=== PATIENT | female | born 1935 | race Caucasian/White ===

== ENCOUNTER 2017-06-01 13:48 | Emergency (ER) | payer MEDICARE, BC ==
--- NOTE | 2017-06-01 13:58 | Emergency Department Record ---
History of Present Illness - General Chief Complaint: Palpitations Stated Complaint: HEART RACING SOB ,L LEG PA IN CALF Source: Patient Mode of Arrival: Ambulatory Limitations: No limitations - History of Present Illness Initial Comments: 81 yo female presents from [facility]. The patient reports a few episodes the last 4 days that have concerned her. She is having episodes that make her feel flushed and short of breath with rapid heart rate. They mostly occur during stress. She has been on the phone with insurance [employer] and this stressed her out. No chest pain at any time. 4 days ago she was walking in her living room looking out the window and turn. She felt a pulling feeling in her left calf. The left calf has hurt since mildly with walking or weight bearing. No tenderness to palpation or swelling. No history of DVT/PE/CAD. No history of arrhythmia. PCP Dr Torres. Many years ago she was at [employer] and had testing that was negative for any CAD. 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 MD Complaint: "Heart racing", Palpitations -: Days(s) (4) Context: Other Associated Symptoms: Anxiety, Muscle cramps, Shortness of breath Treatments Prior to Arrival: Calcium channel shimon - Related Data Allergies Allergy/AdvReac Type Severity Reaction Status Date / Time codeine AdvReac Intermediate NAUSEA Verified 06/01/17 13:54 pain medication AdvReac Intermediate NAUSEA Uncoded 03/10/15 09:10 Review of Systems Constitutional: Denies: Chills, Fever, Malaise, Weakness Eyes: Denies: Eye discharge, Eye pain, Photophobia, Vision change ENT: Denies: Congestion, Throat pain Respiratory: Reports: Dyspnea. Denies: Cough, Hemoptysis, Stridor, Wheezes Cardiovascular: Reports: Arrhythmia, Dyspnea on exertion, Palpitations. Denies : Chest pain, Edema, Syncope Endocrine: Denies: Fatigue, Heat or cold intolerance, Polydipsia, Polyuria Gastrointestinal: Denies: Abdominal pain, Diarrhea, Nausea, Vomiting Genitourinary: Denies: Dysuria, Urgency Musculoskeletal: Reports: As per HPI, Myalgia. Denies: Arthralgia, Back pain, Joint swelling Skin: Denies: Bruising, Change in color, Rash Neurological: Denies: Headache, Numbness, Weakness Psychiatric: Denies: Anxiety Hematological/Lymphatic: Denies: Blood Clots, Easy bleeding, Easy bruising, Swollen glands Past Medical History - SOCIAL HISTORY Smoking Status: Never smoker Drug Use: None - RESPIRATORY Hx Respiratory Disorders: Yes Hx Pneumonia: Yes - CARDIOVASCULAR Hx Cardio Disorders: Yes Hx Hypertension: Yes Hx Irregular Heartbeat: Yes - NEURO Hx Neuro Disorders: No - GI Hx GI Disorders: No - Hx Genitourinary Disorders: No - ENDOCRINE Hx Endocrine Disorders: Yes Hx Diabetes: Yes (diet control) - MUSCULOSKELETAL Hx Musculoskeletal Disorders: No - PSYCH Hx Psych Problems: No - HEMATOLOGY/ONCOLOGY Hx Hematology/Oncology Disorders: No Family Medical History Hx Heart Disease: Mother Physical Exam - General General Appearance: Alert, Oriented x3, Cooperative, No acute distress Limitations: No limitations - Head Head exam: Atraumatic, Normocephalic, Normal inspection - Eye Eye exam: Normal appearance. negative: Conjunctival injection, Periorbital swelling, Scleral icterus - ENT ENT exam: Normal exam, Mucous membranes moist Ear exam: Normal external inspection Nasal Exam: Normal inspection Mouth exam: Normal external inspection Teeth exam: Normal inspection Throat exam: Normal inspection - Neck Neck exam: Normal inspection, Full ROM. negative: Tenderness - Respiratory Respiratory exam: Normal lung sounds bilaterally. negative: Accessory muscle use, Respiratory distress, Rhonchi, Stridor, Wheezes - Cardiovascular Cardiovascular Exam: Regular rate, Normal rhythm, Normal heart sounds Peripheral Pulses: 2+: Radial (R), Radial (L) - GI/Abdominal GI/Abdominal exam: Soft. negative: Tenderness - Rectal Rectal exam: Deferred - exam: Deferred - Extremities Extremities exam: Normal inspection, Full ROM, Normal capillary refill, Other ( No swelling). negative: Calf tenderness, Joint swelling, Pedal edema, Tenderness Image of Full Body: 1 - normal calf inspection, no swelling, no edema, no tenderness to palpation. No clinical signs of DVT. Normal leg examination. Achilles is non tender, Normal Margarita's response without pain. - Back Back exam: Reports: Full ROM. Denies: CVA tenderness (R), CVA tenderness (L) - Neurological Neurological exam: Alert, Normal gait, Oriented X3 - Psychiatric Psychiatric exam: Normal affect, Normal mood. negative: Agitated, Anxious - Skin Skin exam: Dry, Intact, Normal color, Warm Course - Reevaluation(s) Reevaluation #1: 06/01/17 14:18 EKG 13:55 NSR, rated 70, intervals normal, axis is normal, ST normal. 06/01/17 14:38 The CBC and D-Dimer were reviewed and were negative. 06/01/17 14:50 The CMP was reviewed. BUN is 25 which is baseline The Troponin is normal after atypical symptoms the last few days The BNP is normal. 06/01/17 15:31 06/01/17 15:43 The patient remains asymptomatic throughout the ED stay I will call for a referral for outpatient cardiology follow up for atypical symptoms. 06/01/17 15:56 Follow up established with the specialty clinic tomorrow with Dr Jaimes Medical Decision Making - Lab Data Result diagrams: 06/01/17 14:05 06/01/17 14:05 Disposition Disposition: Discharge Clinical Impression: Palpitation Disposition: Home, Self-Care Condition: (1) Good Instructions: Heart Palpitations (ED) Additional Instructions: Return immediately if you have any pain, chest pain, short of breath or any new concerns You have been referred to the cardiology specialty clinic for close follow up Referrals: [facility] [Provider Group] Bryan Jaimes [MEDICAL DOCTOR] - Forms: Patient Portal Access Time of Disposition: 15:45 Quality - Quality Measures Quality Measures: N/A - Blood Pressure Screening Does Patient Have Any of the Following: No Blood Pressure Classification: Pre-Hypertensive BP Reading Systolic Measurement: 139 Diastolic Measurement: 82 Screening for High Blood Pressure: < Pre-Hypertensive BP, F/U Documented > [ G8950] Pre-Hypertensive Follow-up Interventions: Referral to alternative/primary care provider.
[2017-06-01 14:17] LABS: BASO % 0.5 % (0-6); EOS % 1.3 % (0-6); GRAN % 56.1 % (47-80); HEMOGLOBIN 14.8 gm/dl (11.6-16.0); LYMPH % 33.3 % (16-45); MEAN CELL VOLUME 79.1 fl (81-97); MEAN CORPUSCULAR HEMOGLOBIN 26.6 pg (27-33); MEAN CORPUSCULAR HGB CONC 33.6 g/dl (32-36); MONO % 8.8 % (0-9); PLATELET COUNT 240 K/uL (130-400); RED BLOOD COUNT 5.56 M/uL (3.80-5.40); RED CELL DISTRIBUTION WIDTH 13.3 % (11.5-14.5); WHITE BLOOD COUNT W/O DIFF 10.9 K/uL (4.2-12.2)
[2017-06-01 14:45] LABS: ALB/GLOB RATIO 1.4 (1.1-1.8); ALBUMIN 4.5 g/dL (4.0-5.0); ALKALINE PHOSPHATASE 93 U/L (35-104); ALT/SGPT 20 U/L (<33); AST/SGOT 19 U/L (10.0-35.0); BLOOD UREA NITROGEN 25 mg/dL (8-23); CREATININE 0.7 mg/dL (0.5-0.9); EST GLOMERULAR FILTRATION RATE > 60 mL/min; GLUCOSE,RANDOM 133 mg/dL (74-109); TOTAL PROTEIN 7.8 g/dL (6.6-8.7)
--- NOTE | 2017-06-02 14:17 | RADIOLOGY REPORT ---
EXAM: CHEST, TWO VIEWS HISTORY: DIFFICULTY IN BREATHING. TECHNIQUE: Frontal and lateral views of the chest were performed. FINDINGS: The heart size is normal. No pulmonary vascular congestion. No infiltrate or pleural effusion. The osseous structures are normal. IMPRESSION: NO ACUTE DISEASE PROCESS. JOB NUMBER: [id number] MTDD
== END 2017-06-01 16:21 | disposition home or self-care (01) ==
LOC: ER 13:48
DX: R00.2 Palpitations (principal); M79.662 Pain in left lower leg; R06.02 Shortness of breath; I10 Essential (primary) hypertension; E11.9 Type 2 diabetes mellitus without complications
CPT/HCPCS: 71020; 80053; 83880; 84484; 85025; 85379; 93005; 93010; 99284

== ENCOUNTER 2017-06-10 03:44 | Emergency (ER) | payer MEDICARE, BC ==
[2017-06-10] MEDS ORDERED: 0.9 % SODIUM CHLORIDE 1000ML 1,000 ML IV SCH (04:00)
--- NOTE | 2017-06-10 04:00 | Emergency Department Record ---
History of Present Illness - General Chief Complaint: Shortness of breath Stated Complaint: DIFFICULTY BREATHING Time Seen by Provider: 06/10/17 03:58 Source: Patient Mode of Arrival: Ambulatory Limitations: No limitations - History of Present Illness Initial Comments: 81 yo female presents to ED with a CC of difficulty breathing and cough symptoms since yesterday. Patient denies fevers or chills, denies chest pain symptoms. Patient denies previous history of asthma or COPD symptoms. MD Complaint: Shortness of breath Onset/Timin -: Days(s) Severity: Mild Severity scale (1-10): 1 Quality: Sharp Consistency: Intermittent Improves With: Nothing Worsens With: Nothing Associated Symptoms: Cough Treatments Prior to Arrival: None - Related Data Home Oxygen Therapy: No Home Oxygen Amount: none Allergies Allergy/AdvReac Type Severity Reaction Status Date / Time codeine AdvReac Intermediate NAUSEA Verified 06/10/17 03:50 pain medication AdvReac Intermediate NAUSEA Uncoded 06/10/17 03:50 Travel Screening - Travel/Exposure Within Last 30 Days Have you traveled within the last 30 days?: No - Travel/Exposure Within Last Year Have you traveled outside the [place] in the last year?: No - Additonal Travel Details Have you been exposed to anyone with a communicable illness?: No - Travel Symptoms Symptom Screening: None Review of Systems Constitutional: Reports: Malaise, Weakness. Denies: Chills, Fever, Night sweats Eyes: Denies: Eye discharge, Eye pain ENT: Reports: Congestion. Denies: Ear pain, Epistaxis Respiratory: Reports: Cough, Dyspnea Cardiovascular: Reports: Dyspnea on exertion. Denies: Chest pain Endocrine: Reports: Fatigue. Denies: Heat or cold intolerance Gastrointestinal: Denies: Abdominal pain Genitourinary: Denies: Incontinence, Retention Musculoskeletal: Denies: Arthralgia, Back pain, Gout, Joint swelling Skin: Denies: Bruising, Change in color Neurological: Denies: Abnormal gait, Confusion, Headache, Seizure Psychiatric: Denies: Anxiety Hematological/Lymphatic: Denies: Anemia, Blood Clots Past Medical History - SOCIAL HISTORY Smoking Status: Never smoker Alcohol Use: None Drug Use: None - RESPIRATORY Hx Respiratory Disorders: Yes Hx Pneumonia: Yes - CARDIOVASCULAR Hx Cardio Disorders: Yes Hx Hypertension: Yes Hx Irregular Heartbeat: Yes - NEURO Hx Neuro Disorders: No - GI Hx GI Disorders: No - Hx Genitourinary Disorders: No - ENDOCRINE Hx Endocrine Disorders: Yes Hx Diabetes: Yes (diet control) - MUSCULOSKELETAL Hx Musculoskeletal Disorders: No - PSYCH Hx Psych Problems: No - HEMATOLOGY/ONCOLOGY Hx Hematology/Oncology Disorders: No Family Medical History Any Significant Family History?: No Hx Heart Disease: Mother Physical Exam - General General Appearance: Alert, Oriented x3, Cooperative, Moderate distress Limitations: No limitations - Head Head exam: Atraumatic, Normocephalic, Normal inspection Head exam detail: negative: Abrasion, Contusion, Simmons's sign, General tenderness, Hematoma, Laceration - Eye Eye exam: Normal appearance. negative: Conjunctival injection, Periorbital swelling, Periorbital tenderness, Scleral icterus - ENT Ear exam: negative: Auricular hematoma, Auricular trauma Nasal Exam: negative: Active bleeding, Discharge, Dried blood, Foreign body Mouth exam: negative: Drooling, Laceration, Muffled voice, Tongue elevation - Neck Neck exam: Normal inspection. negative: Meningismus, Tenderness - Respiratory Respiratory exam: Decreased breath sounds, Respiratory distress, Other ( Tachypnic on examination, mild rhonchi left). negative: Rales, Rhonchi, Stridor - Cardiovascular Cardiovascular Exam: Normal rhythm, Normal heart sounds, Tachycardia - GI/Abdominal GI/Abdominal exam: Soft. negative: Rebound, Rigid, Tenderness - Rectal Rectal exam: Deferred - exam: Deferred - Extremities Extremities exam: Normal inspection. negative: Calf tenderness, Pedal edema, Tenderness - Back Back exam: Denies: CVA tenderness (R), CVA tenderness (L) - Neurological Neurological exam: Alert, Normal gait, Oriented X3 - Psychiatric Psychiatric exam: Normal affect, Normal mood - Skin Skin exam: Normal color. negative: Abrasion Type of lesion: negative: abrasion Course Vital Signs 06/10/17 03:49 Temperature 98.4 F Pulse Rate 116 H Respiratory 26 H Rate Blood Pressure 139/76 Pulse Ox 90 L - Reevaluation(s) Reevaluation #1: 06/10/17 04:04 EKG: Sinus tachycardia 115 Normal axis, normal intervals ST depression V4-V6, ? rate related. Reevaluation #2: 06/10/17 04:43 CXR: Findings are c/w CAP Rocephin and Zithromax initiated in ED with a plan for admission following laboratory results. Reevaluation #3: 06/10/17 04:53 Troponin resulted 0.21 (elevated). ASA ordered, will initiate transfer to [facility] for further evaluation. Reevaluation #4: 06/10/17 05:25 Patient's respiratory distress increased, switched to Bipap to improve her work of breathing. Will continue to monitor closely. Awaiting return call from [facility]. Reevaluation #5: 06/10/17 05:38 Case was discussed with Dr. Glynn, will accept transfer. Medical Decision Making - Lab Data Result diagrams: 06/10/17 04:00 06/10/17 04:05 Critical Care Time Critical Care Time: Yes Total Critical Care Time: 45 Critical Care Time: Treatment of respiratory distress resulting from CAP, administration of Bipap/ antibiotics. ASA ordered for indeterminate troponin. Arrangement of transfer to [facility] for further evaluation. Disposition Disposition: Transfer Clinical Impression: Hypoxia, Elevated troponin level CAP (community acquired pneumonia) Qualifiers: Laterality: unspecified laterality Qualified Code(s): J18.9 - Pneumonia, unspecified organism Sepsis Qualifiers: Sepsis type: sepsis due to unspecified organism Qualified Code(s): A41.9 - Sepsis, unspecified organism Disposition: Still a Patient at [facility] Transfer To: [facility] Reason For Transfer: Sepsis, CAP, elevated troponin Accepting Physician: Gretta Time Discussed w/Accepting Physician: 05:38 Condition: (2) Stable Forms: Patient Portal Access Time of Disposition: 05:39 Quality - Quality Measures Quality Measures: N/A - Blood Pressure Screening Does Patient Have Any of the Following: Active Dx of HTN Blood Pressure Classification: Pre-Hypertensive BP Reading Systolic Measurement: 139 Diastolic Measurement: 76 Screening for High Blood Pressure: Patient Exclusion, Hx of HTN [G9744]
[2017-06-10 04:28] LABS: BASO % 0.2 % (0-6); EOS % 0.3 % (0-6); GRAN % 75.6 % (47-80); HEMATOCRIT 40.1 % (35.0-47.0); HEMOGLOBIN 13.6 gm/dl (11.6-16.0); LYMPH % 14.9 % (16-45); MEAN CELL VOLUME 78.9 fl (81-97); MEAN CORPUSCULAR HEMOGLOBIN 26.8 pg (27-33); MEAN CORPUSCULAR HGB CONC 33.9 g/dl (32-36); MEAN PLATELET VOLUME 11.7 fl (7.4-10.4); PLATELET COUNT 221 K/uL (130-400); RED BLOOD COUNT 5.08 M/uL (3.80-5.40); RED CELL DISTRIBUTION WIDTH 13.5 % (11.5-14.5); WHITE BLOOD COUNT W/O DIFF 16.3 K/uL (4.2-12.2)
[2017-06-10] MEDS ORDERED: CEFTRIAXONE SODIUM 1 GM in 0.9 % SODIUM CHLORIDE 100ML 100 ML IVPB ONE (04:37)
[2017-06-10] MEDS ORDERED: AZITHROMYCIN 500 MG in 0.9 % SODIUM CHLORIDE 250ML 250 ML IVPB ONE (04:37)
[2017-06-10 04:46] LABS: ALB/GLOB RATIO 1.3 (1.1-1.8); ALKALINE PHOSPHATASE 91 U/L (35-104); ALT/SGPT 17 U/L (<33); AST/SGOT 19 U/L (10.0-35.0); BLOOD UREA NITROGEN 26 mg/dL (8-23); CREATININE 0.8 mg/dL (0.5-0.9); EST GLOMERULAR FILTRATION RATE > 60 mL/min; GLUCOSE,RANDOM 179 mg/dL (74-109); TOTAL PROTEIN 7.1 g/dL (6.6-8.7)
[2017-06-10] MEDS ORDERED: ASPIRIN 81 MG CHEWABLE TABLET PO ONE (04:54)
--- NOTE | 2017-06-12 07:46 | RADIOLOGY REPORT ---
DATE: 06/10/2017 at 0414. EXAM: CHEST, TWO VIEWS. HISTORY: Shortness of breath. Cough. TECHNIQUE: Upright PA and lateral views of the chest. COMPARISON: Two-view chest radiographic examination dated 06/01/2017. FINDINGS: The lungs remain hyperinflated. The heart projects mildly enlarged, and there is new mild pulmonary venous hypertension. Mixed primarily reticular opacities are noted in the mid to lower lungs consistent with edema or interstitial pneumonitis. There is questionable new minimal costophrenic angle blunting with tiny effusions suspected. No pneumothorax. The osseous structures are intact. IMPRESSION: CARDIOMEGALY WITH NEW MILD PULMONARY VENOUS HYPERTENSION AND POSSIBLE TINY PLEURAL EFFUSION SUSPICIOUS FOR FLUID OVERLOAD. NEW MIXED PRIMARILY RETICULAR OPACITIES WITHIN THE MID TO LOWER LUNGS SUSPICIOUS FOR INTERSTITIAL EDEMA, THOUGH INTERSTITIAL PNEUMONITIS CANNOT BE EXCLUDED. JOB NUMBER: [id number] MTDD
== END 2017-06-10 08:08 | disposition still patient (30) ==
LOC: ER 03:44
DX: J18.9 Pneumonia, unspecified organism (principal); A41.9 Sepsis, unspecified organism; R09.02 Hypoxemia; R79.89 Other specified abnormal findings of blood chemistry; I10 Essential (primary) hypertension
CPT/HCPCS: 71020; 80053; 83605; 84484; 85025; 93005; 93010; 94660; 96374; 96375; 99285; J0456; J7030; J7050

== ENCOUNTER 2018-03-14 20:25 | Emergency (ER) | payer MEDICARE, BC ==
--- NOTE | 2018-03-14 20:54 | Emergency Department Record ---
History of Present Illness - General Chief Complaint: Headache Migraine Stated Complaint: HEADACHE PAIN,COUGH Source: Patient Mode of Arrival: Ambulatory Limitations: No limitations - History of Present Illness Initial Comments: 82 yo female presents to ED for evaluation of right sided headache symptoms that began 2 days ago. Patient denies injury, denies fevers, chills, or stiff neck symptoms. Patient also denies change in vision or focal weakness symptoms. Patient does report a history of headache symptoms previously as well , unable to determine if her previous headaches were similar in nature. Patient is concerned about a possible sinus infection. Patient also reports mild non-productive cough symptoms x 3 weeks. Patient has been taking Tylenol at home that improves her symptoms. MD Complaint: Headache Onset/Timin -: Days(s) Onset Description: Gradual Location: Frontal, Retro-orbital, Right Severity scale (1-10): 2 Quality: Aching Consistency: Constant Improves With: Medication Worsens With: None Treatments Prior to Arrival: Acetaminophen - Related Data Home Medications Medication Instructions Recorded Confirmed Last Taken Aspirin 325 mg PO DAILY 03/14/18 03/14/18 Unknown Atorvastatin Calcium [Lipitor] 10 mg PO DAILY 03/14/18 03/14/18 Unknown Cholecalciferol (Vitamin D3) 2,000 unit PO DAILY 03/14/18 03/14/18 Unknown [Vitamin D3] Hydralazine HCl 25 mg PO TID 03/14/18 03/14/18 Unknown Levothyroxine Sodium [Synthroid] 75 mcg PO DAILY 03/14/18 03/14/18 Unknown Metoprolol Tartrate [Lopressor] 25 mg PO QPM 03/14/18 03/14/18 Unknown Metoprolol Tartrate [Lopressor] 50 mg PO QAM 03/14/18 03/14/18 Unknown Allergies Allergy/AdvReac Type Severity Reaction Status Date / Time codeine AdvReac Intermediate NAUSEA Verified 06/10/17 03:50 lorazepam [From Ativan] AdvReac ALTERED Verified 03/14/18 20:34 MENTAL STATUS Travel Screening - Travel/Exposure Within Last 30 Days Have you traveled within the last 30 days?: No - Travel Symptoms Symptom Screening: None Review of Systems Constitutional: Denies: Chills, Fever, Malaise, Night sweats Eyes: Denies: Eye discharge, Eye pain ENT: Denies: Congestion, Dental pain, Ear pain, Epistaxis Respiratory: Reports: Cough. Denies: Dyspnea Cardiovascular: Denies: Chest pain, Dyspnea on exertion Endocrine: Denies: Fatigue, Heat or cold intolerance Gastrointestinal: Denies: Abdominal pain, Nausea, Vomiting Genitourinary: Denies: Incontinence, Retention Musculoskeletal: Denies: Arthralgia, Back pain Skin: Denies: Bruising, Change in color Neurological: Reports: Headache. Denies: Abnormal gait, Confusion, Seizure Psychiatric: Denies: Anxiety Hematological/Lymphatic: Denies: Anemia, Blood Clots Past Medical History - SOCIAL HISTORY Smoking Status: Never smoker - RESPIRATORY Hx Respiratory Disorders: Yes Hx Pneumonia: Yes - CARDIOVASCULAR Hx Cardio Disorders: Yes Hx Hypertension: Yes Hx Irregular Heartbeat: Yes Comment:: high cholesterol - NEURO Hx Neuro Disorders: No - GI Hx GI Disorders: No - Hx Genitourinary Disorders: No - ENDOCRINE Hx Endocrine Disorders: Yes Hx Diabetes: Yes (diet control) Hx Thyroid Disease: Yes (Low) - MUSCULOSKELETAL Hx Musculoskeletal Disorders: No - PSYCH Hx Psych Problems: No - HEMATOLOGY/ONCOLOGY Hx Hematology/Oncology Disorders: No Family Medical History Any Significant Family History?: Yes Hx Heart Disease: Mother Physical Exam - General General Appearance: Alert, Oriented x3, Cooperative, No acute distress Limitations: No limitations - Head Head exam: Atraumatic, Normocephalic, Normal inspection Head exam detail: negative: Abrasion, Contusion, Simmons's sign, General tenderness, Hematoma, Laceration - Eye Eye exam: Normal appearance, Other (No mayda-orbital STS present, EOMI). negative: Conjunctival injection, Periorbital swelling, Periorbital tenderness, Scleral icterus - ENT Ear exam: negative: Auricular hematoma, Auricular trauma Nasal Exam: negative: Active bleeding, Discharge, Dried blood, Foreign body Mouth exam: negative: Drooling, Laceration, Muffled voice, Tongue elevation - Neck Neck exam: Normal inspection. negative: Meningismus, Tenderness - Respiratory Respiratory exam: Normal lung sounds bilaterally. negative: Rales, Respiratory distress, Rhonchi, Stridor - Cardiovascular Cardiovascular Exam: Regular rate, Normal rhythm, Normal heart sounds - GI/Abdominal GI/Abdominal exam: Soft. negative: Rebound, Rigid, Tenderness - Rectal Rectal exam: Deferred - exam: Deferred - Extremities Extremities exam: Normal inspection. negative: Calf tenderness, Pedal edema, Tenderness - Back Back exam: Denies: CVA tenderness (R), CVA tenderness (L) - Neurological Neurological exam: Alert, Normal gait, Oriented X3 - Psychiatric Psychiatric exam: Normal affect, Normal mood - Skin Skin exam: Normal color. negative: Abrasion Type of lesion: negative: abrasion Course Vital Signs 03/14/18 20:35 Temperature 98.2 F Pulse Rate [ 85 Pulse Ox Probe] Respiratory 24 Rate Blood Pressure 184/87 [Left Arm] Pulse Ox 95 - Reevaluation(s) Reevaluation #1: 03/14/18 21:44 Laboratory studies were reviewed: BUN 26 AG 17 Labs are otherwise grossly unremarkable for an acute process. CT Brain: Atrophy and small vessel ischemic changes No acute process Patient and her family member were updated on all results thus far, patient reports that her headache symptoms continue to be mild (2-3/10), and she denies analgesia at this time. No evidence for CVA/Temporal arteritis on examination. Patient was counseled to return to ED for any rash that could develop in the distribution of the pains symptoms or any fever symptoms to return to ED immediately. Patient is otherwise well appearing and stable for discharge at this time. Medical Decision Making - Lab Data Result diagrams: 03/14/18 21:00 03/14/18 21:00 Disposition Disposition: Discharge Clinical Impression: Headache Qualifiers: Headache type: unspecified Headache chronicity pattern: acute headache Intractability: not intractable Qualified Code(s): R51 - Headache Disposition: Home, Self-Care Condition: (2) Stable Instructions: Acute Headache (ED) Additional Instructions: Return to ED if your symptoms worsen or if you have any concerns. Tylenol as directed. Follow-up with your family doctor in 3-5 days as directed. Forms: Patient Portal Access Time of Disposition: 21:53 Quality - Quality Measures Quality Measures: N/A - Blood Pressure Screening Does Patient Have Any of the Following: No Blood Pressure Classification: Hypertensive Reading Systolic Measurement: 158 Diastolic Measurement: 78 Screening for High Blood Pressure: < First Hypertensive BP, F/U Documented > [ G8950] First Hypertensive Follow-up Interventions: Referral to alternative/primary care provider.
[2018-03-14 21:08] LABS: BASO % 0.7 % (0-6); EOS % 3.4 % (0-6); GRAN % 56.4 % (47-80); HEMATOCRIT 40.9 % (35.0-47.0); HEMOGLOBIN 13.2 gm/dl (11.6-16.0); LYMPH % 29.6 % (16-45); MEAN CELL VOLUME 82.3 fl (81-97); MEAN CORPUSCULAR HEMOGLOBIN 26.6 pg (27-33); MEAN CORPUSCULAR HGB CONC 32.3 g/dl (32-36); MEAN PLATELET VOLUME 10.6 fl (7.4-10.4); MONO % 9.9 % (0-9); PLATELET COUNT 221 K/uL (130-400); RED BLOOD COUNT 4.97 M/uL (3.80-5.40); RED CELL DISTRIBUTION WIDTH 14.2 % (11.5-14.5); WHITE BLOOD COUNT W/O DIFF 8.9 K/uL (4.2-12.2)
[2018-03-14 21:22] LABS: BLOOD UREA NITROGEN 26 mg/dL (8-23); CREATININE 0.7 mg/dL (0.5-0.9); EST GLOMERULAR FILTRATION RATE > 60 mL/min
[2018-03-14 21:23] LABS: TOTAL PROTEIN 6.9 g/dL (6.6-8.7)
[2018-03-14 21:24] LABS: GLUCOSE,RANDOM 182 mg/dL (74-109)
[2018-03-14 21:27] LABS: ALB/GLOB RATIO 1.3 (1.1-1.8); ALBUMIN 3.9 g/dL (4.0-5.0); ALKALINE PHOSPHATASE 88 U/L (35-104); ALT/SGPT 22 U/L (<33); AST/SGOT 27 U/L (10.0-35.0)
--- NOTE | 2018-03-17 00:17 | CT SCAN REPORT ---
EXAM: CT SCAN HEAD WO CONTRAST HISTORY: HEADACHE. TECHNIQUE: Noncontrast head CT. COMPARISON: None. FINDINGS: The ventricles and subarachnoid spaces are mildly prominent compatible with atrophy. Areas of hypodensity are present in the white matter, likely the result of chronic small vessel ischemic change. No mass or mass effect. No intra or extraaxial hemorrhage. No CT evidence for large acute territorial infarct. Sinuses are clear. Orbits are unremarkable. IMPRESSION: 1. ATROPHY AND CHRONIC SMALL VESSEL ISCHEMIC CHANGE. 2. NO MASS, HEMORRHAGE, OR ACUTE INTRACRANIAL PROCESS. JOB NUMBER: [id number] [facility]
== END 2018-03-14 22:59 | disposition home or self-care (01) ==
LOC: ER 20:25
DX: R51 Headache (principal); R05 Cough; I10 Essential (primary) hypertension; E11.9 Type 2 diabetes mellitus without complications; Z95.0 Presence of cardiac pacemaker
CPT/HCPCS: 70450; 80053; 85025; 99283; 99284

== ENCOUNTER 2018-09-22 12:24 | Emergency (ER) | payer MEDICARE, BC ==
[2018-09-22 12:54] LABS: URINE APPEARANCE SL CLOUDY; URINE BILIRUBIN NEGATIVE (NEGATIVE); URINE BLOOD TRACE-I (NEGATIVE); URINE COLOR YELLOW; URINE GLUCOSE (UA) NEGATIVE (NEGATIVE); URINE KETONE NEGATIVE (NEGATIVE); URINE LEUKOCYTE ESTERASE LARGE (NEGATIVE); URINE NITRITE POSITIVE (NEGATIVE); URINE PROTEIN NEGATIVE (NEGATIVE); URINE UROBILINOGEN 0.2 E.U./dL (0.20 - 1.00)
[2018-09-22 13:05] LABS: URINE EPITHELIAL CELLS 0 - 2 (FEW); URINE WBC >50 (0-2/hpf)
[2018-09-22 13:06] LABS: URINE BACTERIA 1+
--- NOTE | 2018-09-22 13:20 | Emergency Department Record ---
History of Present Illness - General Chief complaint: Female Urogenital Problem Stated complaint: UTI Time Seen by Provider: 09/22/18 13:07 Source: Patient Mode of Arrival: Ambulatory Limitations: No limitations - History of Present Illness Initial comments: pt has dysuria and back pain. no fevers or nausea Complaint: Dysuria Onset/Timin -: Days(s) Location: Suprapubic Severity: Mild Quality: Burning Improves with: Urination Associated Symptoms: Dysuria - Related Data Home Medications Medication Instructions Recorded Confirmed Last Taken Gabapentin [Neurontin] 300 mg PO TID PRN 09/22/18 09/22/18 09/22/18 Mometasone Furoate [Elocon] 45 gm TP DAILY 09/22/18 09/22/18 09/21/18 Previous Rx's Medication Instructions Recorded Cephalexin [Keflex] 500 mg PO BID #14 cap 09/22/18 Allergies Allergy/AdvReac Type Severity Reaction Status Date / Time codeine AdvReac Intermediate NAUSEA Verified 09/22/18 12:59 lorazepam [From Ativan] AdvReac ALTERED Verified 09/22/18 12:59 MENTAL STATUS Travel Screening - Travel/Exposure Within Last 30 Days Have you traveled within the last 30 days?: No - Travel/Exposure Within Last Year Have you traveled outside the [place] in the last year?: No - Additonal Travel Details Have you been exposed to anyone with a communicable illness?: No Review of Systems Reviewed: No additional complaints except as noted below Constitutional: Reports: As per HPI. Denies: Chills, Fever, Malaise, Night sweats, Weakness, Weight change Eyes: Reports: As per HPI. Denies: Eye discharge, Eye pain, Photophobia, Vision change ENT: Reports: As per HPI. Denies: Congestion, Dental pain, Ear pain, Epistaxis , Hearing loss, Throat pain Respiratory: Reports: As per HPI. Denies: Cough, Dyspnea, Hemoptysis, Stridor, Wheezes Cardiovascular: Reports: As per HPI. Denies: Arrhythmia, Chest pain, Dyspnea on exertion, Edema, Murmurs, Orthopnea, Palpitations, Paroxysmal nocturnal dyspnea, Rheumatic Fever, Syncope Endocrine: Reports: As per HPI. Denies: Fatigue, Heat or cold intolerance, Polydipsia, Polyuria Gastrointestinal: Reports: As per HPI. Denies: Abdominal pain, Constipation, Diarrhea, Hematemesis, Hematochezia, Melena, Nausea, Vomiting Genitourinary: Reports: As per HPI, Dysuria. Denies: Abnormal menses, Discharge , Dyspareunia, Frequency, Hematuria, Incontinence, Retention, Urgency Musculoskeletal: Reports: As per HPI. Denies: Arthralgia, Back pain, Gout, Joint swelling, Myalgia, Neck pain Skin: Reports: As per HPI. Denies: Bruising, Change in color, Change in hair/ nails, Lesions, Pruritus, Rash Neurological: Reports: As per HPI. Denies: Abnormal gait, Confusion, Headache, Numbness, Paresthesias, Seizure, Tingling, Tremors, Vertigo, Weakness Psychiatric: Reports: As per HPI. Denies: Anxiety, Auditory hallucinations, Depression, Homicidal thoughts, Suicidal thoughts, Visual hallucinations Hematological/Lymphatic: Reports: As per HPI. Denies: Anemia, Blood Clots, Easy bleeding, Easy bruising, Swollen glands Past Medical History - SOCIAL HISTORY Smoking Status: Never smoker Alcohol Use: None Drug Use: None - RESPIRATORY Hx Respiratory Disorders: Yes Hx Pneumonia: Yes - CARDIOVASCULAR Hx Cardio Disorders: Yes Hx Hypertension: Yes Hx Irregular Heartbeat: Yes Hx Pacemaker/Defib: Yes Comment:: high cholesterol - NEURO Hx Neuro Disorders: No - GI Hx GI Disorders: No - Hx Genitourinary Disorders: Yes Hx UTI: Yes - ENDOCRINE Hx Endocrine Disorders: Yes Hx Diabetes: Yes (diet control) Hx Thyroid Disease: Yes (Low) - MUSCULOSKELETAL Hx Musculoskeletal Disorders: No - PSYCH Hx Psych Problems: No - HEMATOLOGY/ONCOLOGY Hx Hematology/Oncology Disorders: No Family Medical History Any Significant Family History?: No Hx Heart Disease: Mother Physical Exam - General General Appearance: Alert, Oriented x3, Cooperative, Mild distress - Head Head exam: Normal inspection - Eye Eye exam: Normal appearance, PERRL, EOMI Pupils: Normal accommodation - ENT ENT exam: Normal exam, Mucous membranes moist, Normal external ear exam, Normal orophraynx Ear exam: Normal external inspection. negative: External canal tenderness Nasal Exam: Normal inspection. negative: Discharge, Sinus tenderness Mouth exam: Normal external inspection, Tongue normal Teeth exam: Normal inspection. negative: Dental caries Throat exam: Normal inspection. negative: Tonsillar erythema, Tonsillar exudate - Neck Neck exam: Normal inspection, Full ROM. negative: Tenderness - Respiratory Respiratory exam: Normal lung sounds bilaterally. negative: Respiratory distress - Cardiovascular Cardiovascular Exam: Regular rate, Normal rhythm, Normal heart sounds - GI/Abdominal GI/Abdominal exam: Soft, Normal bowel sounds. negative: Tenderness - Rectal Rectal exam: Deferred - exam: Deferred - Extremities Extremities exam: Normal inspection, Full ROM, Normal capillary refill. negative: Tenderness - Back Back exam: Reports: Normal inspection, Full ROM. Denies: Muscle spasm, Rash noted, Tenderness - Neurological Neurological exam: Alert, CN II-XII intact, Normal gait, Oriented X3 - Psychiatric Psychiatric exam: Normal affect, Normal mood - Skin Skin exam: Dry, Intact, Normal color, Warm Course Vital Signs 09/22/18 12:40 Temperature 98.1 F Pulse Rate [ 83 Left] Respiratory 18 Rate Blood Pressure 165/81 [Left Arm] Pulse Ox 97 Medical Decision Making - Lab Data Lab Results 09/22/18 Range/Units 12:45 Urine Color Yellow Urine Appearance Sl cloudy Urine pH 7.0 (5.0-8.0) Ur Specific [place] 1.010 (1.002-1.030) Urine Protein Negative (NEGATIVE) Urine Glucose (UA) Negative (NEGATIVE) Urine Ketones Negative (NEGATIVE) Urine Blood Trace-i (NEGATIVE) Urine Nitrite Positive H (NEGATIVE) Urine Bilirubin Negative (NEGATIVE) Urine Urobilinogen 0.2 (0.20 - 1.00) E.U./dL Ur Leukocyte Esterase Large H (NEGATIVE) Urine RBC 3 - 6 (NONE SEEN) Urine WBC >50 (0-2/hpf) Ur Epithelial Cells 0 - 2 (FEW) Urine Bacteria 1+ Disposition Disposition: Discharge Clinical Impression: UTI (urinary tract infection) Qualifiers: Urinary tract infection type: acute cystitis Hematuria presence: without hematuria Qualified Code(s): N30.00 - Acute cystitis without hematuria Disposition: Home, Self-Care Condition: (1) Good Additional Instructions: follow up with family doctor. return sooner if worse Prescriptions: Cephalexin [Keflex] 500 mg PO BID #14 cap Forms: Patient Portal Access Quality - Quality Measures Quality Measures: N/A - Blood Pressure Screening Does Patient Have Any of the Following: No Blood Pressure Classification: Pre-Hypertensive BP Reading Systolic Measurement: 165 Diastolic Measurement: 81 Screening for High Blood Pressure: < Pre-Hypertensive BP, F/U Documented > [ [id number]] Pre-Hypertensive Follow-up Interventions: Follow-up with rescreen every year.
== END 2018-09-22 13:42 | disposition home or self-care (01) ==
LOC: ER 12:24
DX: N30.00 Acute cystitis without hematuria (principal); Z79.01 Long term (current) use of anticoagulants; Z95.2 Presence of prosthetic heart valve; E78.00 Pure hypercholesterolemia, unspecified; E11.9 Type 2 diabetes mellitus without complications; E03.9 Hypothyroidism, unspecified
CPT/HCPCS: 81001; 99283